=== PATIENT | female | born 1995 | race Caucasian/White ===

== ENCOUNTER 2017-02-10 22:13 | Emergency (ER) | payer OTHER ==
[2017-02-10 23:23] VITALS: BP 132/74; PULSE 84; TEMP 98.5; BMI 38.7
--- NOTE | 2017-02-11 01:52 | PDOC ---
History of Present Illness - General History Source: Patient - History of Present Illness Initial Comments: 02/11/17 01:56 The patient is a 21 year old female, with no significant past medical history, who presents to the emergency department with diffuse headache since yesterday afternoon. She reportedly ate [place] food and subsequently developed a headache yesterday. She reports nausea today, but denies vomiting. She denies history of migraines. She denies the use of oral contraceptives. She denies chest pain, shortness of breath, and dizziness. She denies fever, chills, vomit, diarrhea and constipation. She denies dysuria, frequency, urgency and hematuria. Allergies: NKDA Social Hx: Pt denies illicit drug or tobacco use. She denies ETOH consumption. <Brooke Ferro - Last Filed: 02/11/17 01:56> - General History Source: Patient <EdisonAugustine abdul - Last Filed: 02/11/17 03:12> - General Chief Complaint: Migraine Headache Stated Complaint: NAUSEA Time Seen by Provider: 02/11/17 01:50 Past History <Brooke Ferro - Last Filed: 02/11/17 01:56> - Suicide/Smoking/Psychosocial Hx Smoking History: Never smoked Have you smoked in the past 12 months: No Information on smoking cessation initiated: No Hx Alcohol Use: No Drug/Substance Use Hx: No <Augustine Ahn - Last Filed: 02/11/17 03:12> - Past Medical History Home Medications: Ambulatory Orders Ibuprofen 800 mg PO TID #30 tablet 02/11/17 Metoclopramide HCl [Reglan -] 10 mg PO TID #30 tablet 02/11/17 Review of Systems - Review of Systems Able to Perform ROS?: Yes Comments:: 02/11/17 01:57 CONSTITUTIONAL: Absent: fever, chills, diaphoresis, generalized weakness, malaise, loss of appetite HEENT: Absent: rhinorrhea, nasal congestion, throat pain, throat swelling, difficulty swallowing, mouth swelling, ear pain, eye pain, visual Changes CARDIOVASCULAR: Absent: chest pain, syncope, palpitations, irregular heart rate, lightheadedness , peripheral edema RESPIRATORY: Absent: cough, shortness of breath, dyspnea with exertion, orthopnea, wheezing, stridor, hemoptysis GASTROINTESTINAL: (+) nausea, Absent: abdominal pain, abdominal distension, vomiting, diarrhea, constipation, melena, hematochezia GENITOURINARY: Absent: dysuria, frequency, urgency, hesitancy, hematuria, flank pain, genital pain MUSCULOSKELETAL: Absent: myalgia, arthralgia, joint swelling SKIN: Absent: rash, itching, pallor HEMATOLOGIC/IMMUNOLOGIC: Absent: easy bleeding, easy bruising, lymphadenopathy, frequent infections ENDOCRINE: Absent: unexplained weight gain, unexplained weight loss, heat intolerance, cold intolerance NEUROLOGIC: (+) headache, Absent: focal weakness or paresthesias, dizziness, unsteady gait, seizure, mental status changes, bladder or bowel incontinence PSYCHIATRIC: Absent: anxiety, depression, suicidal or homicidal ideation, hallucinations. <Brooke Ferro - Last Filed: 02/11/17 01:56> *Physical Exam - Vital Signs Last Vital Signs Temp Pulse Resp BP Pulse Ox 98.5 F 84 20 132/74 100 02/10/17 23:20 02/10/17 23:20 02/10/17 23:20 02/10/17 23:20 02/10/17 23:20 - Physical Exam Comments: 02/11/17 01:58 GENERAL: Well developed, well nourished. Awake and alert. No acute distress. HEENT: Normocephalic, atraumatic. PERRLA, EOMI. No conjunctival pallor. Sclera are non- icteric. Moist mucous membranes. Oropharynx is clear. NECK: Supple. Full ROM. No JVD. Carotid pulses 2+ and symmetric, without bruits. No thyromegaly. No lymphadenopathy. CARDIOVASCULAR: Regular rate and rhythm. No murmurs, rubs, or gallops. Distal pulses are 2+ and symmetric. PULMONARY: No evidence of respiratory distress. Lungs clear to auscultation bilaterally. No wheezing, rales or rhonchi. ABDOMINAL: Soft. Non-tender. Non-distended. No rebound or guarding. No organomegaly. Normoactive bowel sounds. MUSCULOSKELETAL Normal range of motion at all joints. No bony deformities or tenderness. No CVA tenderness. EXTREMITIES: No cyanosis. No clubbing. No edema. No calf tenderness. SKIN: Warm and dry. Normal capillary refill. No rashes. No jaundice. NEUROLOGICAL: Alert, awake, appropriate. Cranial nerves 2-12 intact. Normoreflexic in the upper and lower extremities. Normal speech. Toes are down-going bilaterally. Gait is normal without ataxia. PSYCHIATRIC: Cooperative. Good eye contact. Appropriate mood and affect. <Brooke Ferro - Last Filed: 02/11/17 01:56> - Vital Signs Last Vital Signs Temp Pulse Resp BP Pulse Ox 98.5 F 84 20 132/74 100 02/10/17 23:20 02/10/17 23:20 02/10/17 23:20 02/10/17 23:20 02/10/17 23:20 <Augustine Ahn - Last Filed: 02/11/17 03:12> Medical Decision Making - Medical Decision Making 02/11/17 03:09 Dr. Ahn: The scribe's documentation has been prepared under my direction and personally reviewed by me in its entirery. I confirm that the note above accurately reflects all work, treatment, procedures, and medical decision making performed by me. <Augustine Ahn - Last Filed: 02/11/17 03:12> *DC/Admit/Observation/Transfer - Attestations Scribe Attestion: 02/11/17 01:58 Documentation prepared by Brooke Ferro, acting as quality engineer medical device for Augustine Ahn DO <Brooke Ferro - Last Filed: 02/11/17 01:56> - Discharge Dispostion Admit: No <Augustine Ahn - Last Filed: 02/11/17 03:12> Diagnosis at time of Disposition: Headache Qualifiers: Headache type: unspecified Headache chronicity pattern: unspecified pattern Intractability: not intractable Qualified Code(s): R51 - Headache - Discharge Dispostion Disposition: HOME Condition at time of disposition: Stable - Prescriptions Prescriptions: Ibuprofen 800 mg PO TID #30 tablet Metoclopramide HCl [Reglan -] 10 mg PO TID #30 tablet - Referrals Referrals: Susan Thompson [Primary Care Provider] - - Patient Instructions Printed Discharge Instructions: DI for Headache Additional Instructions: Take medication as directed. Avoid excessive sodium especially MSG. Follow up with your doctor if symptoms don't improve. Return if any problems - Post Discharge Activity Forms/Work/School Notes: Back to Work
[2017-02-11] MEDS ORDERED: METOCLOPRAMIDE HCL 10 MG TABLET (FP) PO ONE ×2 (01:53→02:11)
[2017-02-11] MEDS ORDERED: IBUPROFEN 400 MG TABLET (FP) PO ONE ×2 (01:53→02:11)
== END 2017-02-11 03:18 | disposition home or self-care (01) ==
LOC: JER 22:13
DX: R51 Headache (principal)
CPT/HCPCS: 99283-25